=== PATIENT | male | born 1975 | race Caucasian/White ===

== ENCOUNTER 2021-01-09 18:26 | Emergency (ER) | payer OTHER ==
[~2021-01-09] VITALS: Ht 182.9 cm; Wt 178.3 kg
[2021-01-09 18:35] VITALS: BP 172/104
--- NOTE | 2021-01-09 18:47 | NUR ---
45 Y/O M BIB SELF FROM HOME, C/O HIGH BLOOD SUGAR X 3 WEEKS. PT STATES HIS BS HAS RECENTLY BEEN HIGH, FROM 250-400. PT ALSO REPORTS A PRURITIC RASH IN PERINEAL AREA THAT STARTED AROUND THE SAME TIME. IN ED, PT HYPERTENSIVE. BS IN ER: 168. PT STATES THAT HE TOOK HIS DM MEDS 2 HOURS AGO. CLEAR BREATH SOUNDS. WITH SCALY RASH ON INGUINAL AREA. PT CHANGED TO GOWN. ERMD MADE AWARE OF PT STATUS. PMH: DM2, CELLULITIS, SLEEP APNEA ALLERGY: PENICILLIN, [place]S MED: SEE LIST
[2021-01-09] MEDS ORDERED: NACL 0.9% 1,000 ML IV ONE (19:05)
--- NOTE | 2021-01-09 19:17 | NUR ---
REPORT GIVEN TO YOHANA QUINTANA. ALL CARES TRANSFERED AT THIS TIME.
[2021-01-09 19:29] LABS: BASOPHILS # (AUTO) 0.1 K/uL (0.00-0.22); EOSINOPHILS # (AUTO) 0.2 K/uL (0-0.4); EOSINOPHILS % (AUTO) 2.1 % (0.0-4.0); HEMATOCRIT 46.2 % (36-52); HEMOGLOBIN 15.6 g/dL (12.0-18.0); LYMPHOCYTES # (AUTO) 2.8 K/uL (2.0-11.5); LYMPHOCYTES % (AUTO) 30.8 % (20.5-51.1); MEAN CORPUSCULAR HEMOGLOBIN 28 pg (27-31); MEAN CORPUSCULAR HGB CONC 34 g/dL (33-37); MEAN CORPUSCULAR VOLUME 81.5 fL (80-94); MONOCYTES # (AUTO) 0.5 K/uL (0.8-1.0); MONOCYTES % (AUTO) 5.1 % (1.7-9.3); NEUTROPHILS # (AUTO) 5.5 K/uL (1.8-7.7); PLATELET COUNT (AUTO) 313 K/uL (140-450); RED BLOOD CELL COUNT(AUTO) 5.66 MIL/uL (4.20-6.10); RED CELL DISTRIBUTION WIDTH 14.4 % (11.6-13.7)
--- NOTE | 2021-01-09 19:30 | NUR ---
consent signed for ct.
[2021-01-09 19:42] LABS: ALBUMIN 3.3 g/dL (3.4-5.0); ANION GAP 11.6 (8-16); CARBON DIOXIDE 29.4 mmol/L (21-32); CREATININE 0.8 mg/dL (0.6-1.3); TOTAL BILIRUBIN 0.3 mg/dL (0.0-1.0)
--- NOTE | 2021-01-09 19:54 | NUR ---
TO CT VIA [facility]
[2021-01-09] MEDS ORDERED: SULF-59 PO (20:36)
[2021-01-09] MEDS ORDERED: NYST-71 TP (20:36)
== END 2021-01-09 20:55 | disposition home or self-care (01) ==
LOC: MED 18:26
DX: L03.314 Cellulitis of groin (principal); B35.6 Tinea cruris; E11.9 Type 2 diabetes mellitus without complications; I10 Essential (primary) hypertension; Z79.899 Other long term (current) drug therapy; Z88.0 Allergy status to penicillin; Z98.890 Other specified postprocedural states
CPT/HCPCS: 36415; 72193; 80053; 83605; 85025; 87040; 99285; Q9967

== ENCOUNTER 2021-08-02 03:05 | Emergency (ER) | payer OTHER ==
[~2021-08-02] VITALS: Ht 182.9 cm; Wt 163.3 kg
[~2021-08-02 03:05] MED LIST: NYST-71 TP; SULF-59 PO
[2021-08-02 03:40] VITALS: BP 151/90
--- NOTE | 2021-08-02 04:20 | NUR ---
45 YO M BIBS W C/O OF ABSCESS ON HIS LEFT SCROTUM, AND THIGH, WITH BLOODY D/C FOR 4 DAYS. DENIES FEVER, N/V PMH: HTN, DM ALLERGY: PCN MEDS: DENIES
[2021-08-02] MEDS ORDERED: VANCOMYCIN 1,000 MG in DEXTROSE 5% 250 ML IV ONE (05:00)
[2021-08-02] MEDS ORDERED: MORPHINE SULFATE 4 MG/ML SYR IVP ONE (05:00)
[2021-08-02] MEDS ORDERED: cefTRIAXone 1,000 MG in DEXT 5% MINI-BAG PLUS 50 ML IV ONE (05:00)
[2021-08-02] MEDS ORDERED: ONDANSETRON 4 MG/2 ML VIAL IVP ONE (05:00)
[2021-08-02 05:29] LABS: ALBUMIN 2.7 g/dL (3.4-5.0); ANION GAP 11.4 (8-16); CARBON DIOXIDE 27.9 mmol/L (21-32); CREATININE 0.8 mg/dL (0.6-1.3); POTASSIUM 4.3 mmol/L (3.5-5.1); TOTAL BILIRUBIN 0.3 mg/dL (0.0-1.0)
[2021-08-02] MEDS ORDERED: VANCOMYCIN 1,000 MG VIAL ONE (05:51)
[2021-08-02] MEDS ORDERED: cefTRIAXone 1,000 MG VIAL ONE (05:51)
[2021-08-02 06:06] LABS: BASOPHILS # (AUTO) 0.1 K/uL (0.00-0.22); BASOPHILS % (AUTO) 0.5 % (0.0-2.0); EOSINOPHILS # (AUTO) 0.2 K/uL (0-0.4); EOSINOPHILS % (AUTO) 1.3 % (0.0-4.0); HEMATOCRIT 44.7 % (36-52); HEMOGLOBIN 14.5 g/dL (12.0-18.0); LYMPHOCYTES # (AUTO) 1.9 K/uL (2.0-11.5); LYMPHOCYTES % (AUTO) 15.2 % (20.5-51.1); MEAN CORPUSCULAR HEMOGLOBIN 27 pg (27-31); MEAN CORPUSCULAR HGB CONC 33 g/dL (33-37); MONOCYTES # (AUTO) 0.8 K/uL (0.8-1.0); MONOCYTES % (AUTO) 6.2 % (1.7-9.3); NEUTROPHILS # (AUTO) 9.8 K/uL (1.8-7.7); NEUTROPHILS % (AUTO) 76.8 % (42.2-75.2); PLATELET COUNT (AUTO) 260 K/uL (140-450); RED BLOOD CELL COUNT(AUTO) 5.38 MIL/uL (4.20-6.10); RED CELL DISTRIBUTION WIDTH 14.1 % (11.6-13.7); WHITE BLOOD COUNT (AUTO) 12.8 K/uL (4.8-10.8)
--- NOTE | 2021-08-02 07:11 | NUR ---
PATIENT ABLE TO AMUBLATE SELF TO RESTROOM AND TOLERATING MEDICATIONS WELL.
--- NOTE | 2021-08-02 07:18 | NUR ---
HANDOFF GIVEN TO MERVAT MULLER.
--- NOTE | 2021-08-02 07:22 | NUR ---
BEDSIDE REPORT RCVD FROM OUTGOING NOC RN MARCI, ALL CARES ASSUMED.
[2021-08-02] MEDS: NACL 0.9% 1,000 ML IV SCH ×2 (07:34→09:58)
--- NOTE | 2021-08-02 07:39 | NUR ---
PATIENT ASLEEP IN NO ACUTE DISTRESS AND OR DISCOMFORT, MONITORING.
[2021-08-02 08:33] VITALS: BP 156/85
--- NOTE | 2021-08-02 09:14 | NUR ---
PATIENT WILL BE ADMITTED TO [facility]
--- NOTE | 2021-08-02 09:19 | NUR ---
MD AT BEDSIDE DISCUSSING PLAN OF CARE WITH PATIENT
--- NOTE | 2021-08-02 09:30 | NUR ---
LEFT SIDE OF SCROTUM CLEANSED WITH NS, CLEAN DRY DRESSING PLACED TO ASSIST WITH DRAINAGE ABSORPTION. AREA NOTED WITH PURULENT DISCHARGE AND FOUL ODOR.
--- NOTE | 2021-08-02 09:38 | NUR ---
CINDY JENNINGS COLLECTED AND BROUGHT TO LAB
--- NOTE | 2021-08-02 10:06 | NUR ---
PATIENT ASKED TO GO OUTSIDE AND SMOKE, EDUCATED PATIENT HE CAN NOT LEAVE FACILITY AND OFFERED PATIENT A NICOTINE PATCH. PATIENT AGREED FOR PATCH.
--- NOTE | 2021-08-02 10:08 | NUR ---
GAVE ORDER FOR NICOTINE PATCH
--- NOTE | 2021-08-02 10:10 | NUR ---
PIV TO LEFT ARM D/C PATIENT REFUSES CARE AND STATES, "I AM LEAVING", CHARGE AWARE.
--- NOTE | 2021-08-02 10:12 | NUR ---
Patient does not wish to proceed with medical care recommended by . Patient given information related to possible complications, up to and including , which could occur as a result of leaving hospital at this time. Patient verbalizes understanding of risks involved leaving against medical advice. Patient has signed AMA form.
== END 2021-08-02 10:12 | disposition left against medical advice (07) ==
LOC: MED 03:05
DX: N49.2 Inflammatory disorders of scrotum (principal); Z20.822 Contact with and (suspected) exposure to COVID-19; E11.9 Type 2 diabetes mellitus without complications; I10 Essential (primary) hypertension; Z79.899 Other long term (current) drug therapy; Z88.0 Allergy status to penicillin
CPT/HCPCS: 36415; 74177; 80053; 83605; 83690; 85025; 85651; 86140; 87040; 87426; 96365; 96366; 96367; 96375; 99285; J0696; J2270; J2405; J3370; J7030; Q9967

== ENCOUNTER 2021-08-03 02:45 | Inpatient (IN) | payer OTHER ==
[~2021-08-03] VITALS: Ht 182.9 cm; Wt 163.3 kg
[2021-08-03 02:54] VITALS: BP 159/94
[2021-08-03] MEDS ORDERED: VANCOMYCIN 1,000 MG in DEXTROSE 5% 250 ML IV SCH (03:20)
[2021-08-03] MEDS ORDERED: CLINDAMYCIN 600 MG in DEXTROSE 5% 50 ML IV SCH (03:20)
[2021-08-03 03:32] LABS: BASOPHILS # (AUTO) 0.2 K/uL (0.00-0.22); EOSINOPHILS # (AUTO) 0.5 K/uL (0-0.4); EOSINOPHILS % (AUTO) 4.4 % (0.0-4.0); HEMATOCRIT 46.2 % (36-52); HEMOGLOBIN 15.4 g/dL (12.0-18.0); LYMPHOCYTES # (AUTO) 1.9 K/uL (2.0-11.5); LYMPHOCYTES % (AUTO) 17.7 % (20.5-51.1); MEAN CORPUSCULAR HEMOGLOBIN 28 pg (27-31); MEAN CORPUSCULAR HGB CONC 33 g/dL (33-37); MEAN CORPUSCULAR VOLUME 82.7 fL (80-94); MONOCYTES # (AUTO) 0.7 K/uL (0.8-1.0); MONOCYTES % (AUTO) 6.4 % (1.7-9.3); NEUTROPHILS # (AUTO) 7.5 K/uL (1.8-7.7); NEUTROPHILS % (AUTO) 69.5 % (42.2-75.2); PLATELET COUNT (AUTO) 323 K/uL (140-450); RED BLOOD CELL COUNT(AUTO) 5.59 MIL/uL (4.20-6.10); RED CELL DISTRIBUTION WIDTH 14.1 % (11.6-13.7); WHITE BLOOD COUNT (AUTO) 10.8 K/uL (4.8-10.8)
[2021-08-03 03:45] LABS: ANION GAP 12.5 (8-16); CARBON DIOXIDE 28.5 mmol/L (21-32); CREATININE 0.8 mg/dL (0.6-1.3)
[2021-08-03] MEDS ORDERED: MAG SULF 2000 MG/WATER PREMIX 50 ML IV PRN (03:45)
[2021-08-03] MEDS ORDERED: VANCOMYCIN PER PHARMACY MC PRN (03:45)
[2021-08-03] MEDS ORDERED: ACETAMINOPHEN 325 MG TAB PO PRN (03:45)
[2021-08-03] MEDS ORDERED: KCL 20 MEQ/WATER INJ PREMIX 200 ML IV PRN (03:45)
[2021-08-03] MEDS ORDERED: ONDANSETRON 4 MG/2 ML VIAL IVP PRN (03:45)
[2021-08-03] MEDS ORDERED: HYDROcodone/APAP 5/325 MG 1 TAB TAB PO PRN (03:45)
[2021-08-03] MEDS ORDERED: MORPHINE SULFATE 4 MG/ML SYR IVP PRN (03:45)
[2021-08-03] MEDS ORDERED: POTASSIUM CHLORIDE 10 MEQ TABER PO PRN (03:45)
[2021-08-03] MEDS ORDERED: ZOLPIDEM 5 MG TAB PO PRN (03:45)
[2021-08-03] MEDS ORDERED: MAGNESIUM OXIDE 400 MG TAB PO PRN (03:45)
[2021-08-03] MEDS ORDERED: LORazepam 1 MG TAB PO PRN (03:45)
[2021-08-03] MEDS ORDERED: CLINDAMYCIN 600 MG/4 ML VIAL ONE (03:57)
[2021-08-03] MEDS ORDERED: cefTRIAXone 1,000 MG VIAL ONE (04:27)
[2021-08-03] MEDS: NACL 0.9% 1,000 ML IV SCH ×2 (04:43→16:15)
[2021-08-03 05:05] VITALS: BP 136/81
[2021-08-03] MEDS ORDERED: VANCOMYCIN 1GM/DEXT 5% PREMIX 200 ML IV SCH (06:00)
[2021-08-03 08:00] VITALS: BP 127/83
[2021-08-03] MEDS: NICOTINE TRANSD SYS 21 MG/24 HR PATCH TD SCH (09:00)
[2021-08-03] MEDS: VANCOMYCIN 1,500 MG in DEXTROSE 5% 500 ML IV SCH ×2 (09:00→16:20)
[2021-08-03] MEDS: DOCUSATE SODIUM 100 MG GELCAP PO SCH (09:00)
[2021-08-03 16:00] VITALS: BP 134/74
[2021-08-03] MEDS ORDERED: DEXTROSE 50% 50 ML SYR IVP PRN (17:45)
[2021-08-03 20:00] VITALS: BP 134/67
[2021-08-03] MEDS: INSULIN LISPRO SLIDING SCALE 100 UNITS/ML VIAL SUBQ PRN (20:57)
[2021-08-03] MEDS: BLOOD GLUCOSE MONITORING 1 DEV DEV FS SCH (20:57)
[2021-08-03] MEDS: metroNIDAZOLE 500 MG TAB PO SCH (21:08)
[2021-08-04] MEDS: VANCOMYCIN 1,500 MG in DEXTROSE 5% 500 ML IV SCH ×3 (00:47→16:00)
[2021-08-04 04:00] VITALS: BP 139/76
[2021-08-04] MEDS: NACL 0.9% 1,000 ML IV SCH ×2 (05:45→17:32)
[2021-08-04] MEDS: metroNIDAZOLE 500 MG TAB PO SCH ×3 (05:50→21:11)
[2021-08-04] MEDS: BLOOD GLUCOSE MONITORING 1 DEV DEV FS SCH ×4 (06:41→20:53)
[2021-08-04] MEDS: INSULIN LISPRO SLIDING SCALE 100 UNITS/ML VIAL SUBQ PRN ×4 (06:46→21:14)
[2021-08-04 07:32] LABS: CARBON DIOXIDE 29.2 mmol/L (21-32); CREATININE 0.7 mg/dL (0.6-1.3); POTASSIUM 4.2 mmol/L (3.5-5.1)
[2021-08-04 07:36] LABS: BASOPHILS # (AUTO) 0.1 K/uL (0.00-0.22); BASOPHILS % (AUTO) 0.7 % (0.0-2.0); EOSINOPHILS # (AUTO) 0.3 K/uL (0-0.4); EOSINOPHILS % (AUTO) 3.6 % (0.0-4.0); HEMATOCRIT 46.1 % (36-52); HEMOGLOBIN 15.5 g/dL (12.0-18.0); LYMPHOCYTES # (AUTO) 2.8 K/uL (2.0-11.5); LYMPHOCYTES % (AUTO) 30.9 % (20.5-51.1); MEAN CORPUSCULAR HEMOGLOBIN 28 pg (27-31); MEAN CORPUSCULAR HGB CONC 34 g/dL (33-37); MEAN CORPUSCULAR VOLUME 81.9 fL (80-94); MONOCYTES # (AUTO) 0.5 K/uL (0.8-1.0); MONOCYTES % (AUTO) 5.6 % (1.7-9.3); NEUTROPHILS # (AUTO) 5.3 K/uL (1.8-7.7); NEUTROPHILS % (AUTO) 59.2 % (42.2-75.2); PLATELET COUNT (AUTO) 357 K/uL (140-450); RED BLOOD CELL COUNT(AUTO) 5.62 MIL/uL (4.20-6.10); RED CELL DISTRIBUTION WIDTH 14.4 % (11.6-13.7); WHITE BLOOD COUNT (AUTO) 8.9 K/uL (4.8-10.8)
[2021-08-04] MEDS: NICOTINE TRANSD SYS 21 MG/24 HR PATCH TD SCH (09:16)
[2021-08-04] MEDS: DOCUSATE SODIUM 100 MG GELCAP PO SCH (09:16)
[2021-08-04 12:00] VITALS: BP 116/55
[2021-08-04] MEDS: INSULIN LANTUS 100 UNITS/ML 10 ML VIAL SUBQ SCH (14:45)
[2021-08-04 16:00] VITALS: BP 153/76
[2021-08-04 20:00] VITALS: BP 148/78
[2021-08-04] MEDS ORDERED: ZOLPIDEM 5 MG TAB PO PRN (20:05)
[2021-08-05] MEDS ORDERED: VANCOMYCIN 500 MG VIAL ONE (00:40)
[2021-08-05] MEDS: VANCOMYCIN 1,500 MG in DEXTROSE 5% 500 ML IV SCH (00:49)
[2021-08-05 04:00] VITALS: BP 138/85
[2021-08-05] MEDS: metroNIDAZOLE 500 MG TAB PO SCH ×3 (05:00→20:52)
[2021-08-05] MEDS: NACL 0.9% 1,000 ML IV SCH ×2 (05:45→18:22)
[2021-08-05] MEDS: BLOOD GLUCOSE MONITORING 1 DEV DEV FS SCH ×5 (06:30→21:45)
[2021-08-05] MEDS: INSULIN LISPRO SLIDING SCALE 100 UNITS/ML VIAL SUBQ PRN ×4 (06:31→21:17)
[2021-08-05 08:00] VITALS: BP 159/100
[2021-08-05] MEDS: VANCOMYCIN 1,500 MG in NACL 0.9% 500 ML IV SCH ×2 (08:00→15:33)
[2021-08-05] MEDS: DOCUSATE SODIUM 100 MG GELCAP PO SCH ×2 (09:00→09:05)
[2021-08-05 09:01] LABS: ANION GAP 10.8 (8-16); CARBON DIOXIDE 28.9 mmol/L (21-32); CREATININE 0.6 mg/dL (0.6-1.3); POTASSIUM 3.7 mmol/L (3.5-5.1)
[2021-08-05 09:04] LABS: BASOPHILS # (AUTO) 0.1 K/uL (0.00-0.22); BASOPHILS % (AUTO) 0.8 % (0.0-2.0); EOSINOPHILS # (AUTO) 0.3 K/uL (0-0.4); EOSINOPHILS % (AUTO) 2.9 % (0.0-4.0); HEMOGLOBIN 15.5 g/dL (12.0-18.0); LYMPHOCYTES # (AUTO) 2.7 K/uL (2.0-11.5); LYMPHOCYTES % (AUTO) 29.5 % (20.5-51.1); MEAN CORPUSCULAR HEMOGLOBIN 27 pg (27-31); MEAN CORPUSCULAR HGB CONC 33 g/dL (33-37); MEAN CORPUSCULAR VOLUME 82.3 fL (80-94); MONOCYTES # (AUTO) 0.5 K/uL (0.8-1.0); MONOCYTES % (AUTO) 5.9 % (1.7-9.3); NEUTROPHILS # (AUTO) 5.6 K/uL (1.8-7.7); NEUTROPHILS % (AUTO) 60.9 % (42.2-75.2); PLATELET COUNT (AUTO) 361 K/uL (140-450); RED BLOOD CELL COUNT(AUTO) 5.72 MIL/uL (4.20-6.10); RED CELL DISTRIBUTION WIDTH 14.2 % (11.6-13.7); WHITE BLOOD COUNT (AUTO) 9.2 K/uL (4.8-10.8)
[2021-08-05] MEDS: NICOTINE TRANSD SYS 21 MG/24 HR PATCH TD SCH (09:05)
[2021-08-05] MEDS: INSULIN LANTUS 100 UNITS/ML 10 ML VIAL SUBQ SCH (09:05)
[2021-08-05] MEDS ORDERED: fentaNYL citrate 0.05 MG/ML VIAL ONE ×2 (13:31→13:52)
[2021-08-05] MEDS ORDERED: ONDANSETRON 4 MG/2 ML VIAL ONE (13:41)
[2021-08-05] MEDS ORDERED: KETOROLAC 30 MG/ML VIAL ONE (13:42)
[2021-08-05] MEDS ORDERED: PROPOFOL 200 MG/20 ML VIAL IV ONE (13:42)
[2021-08-05] MEDS ORDERED: LIDOCAINE/EPI MPF 1%1:200000 30 ML VIAL INJ ONE (13:54)
[2021-08-05] MEDS ORDERED: BUPIVACAINE-MPF 0.25% 30 ML VIAL INJ ONE (13:54)
[2021-08-05 16:00] VITALS: BP 158/88
[2021-08-06] VITALS: BP 156/88
[2021-08-06] MEDS: VANCOMYCIN 1,500 MG in NACL 0.9% 500 ML IV SCH ×3 (02:02→16:58)
[2021-08-06] MEDS: NACL 0.9% 1,000 ML IV SCH ×2 (02:06→20:05)
[2021-08-06] MEDS: metroNIDAZOLE 500 MG TAB PO SCH ×3 (05:12→21:00)
[2021-08-06 05:54] LABS: BASOPHILS # (AUTO) 0.1 K/uL (0.00-0.22); BASOPHILS % (AUTO) 0.6 % (0.0-2.0); EOSINOPHILS # (AUTO) 0.2 K/uL (0-0.4); EOSINOPHILS % (AUTO) 2.4 % (0.0-4.0); HEMATOCRIT 46.1 % (36-52); HEMOGLOBIN 15.3 g/dL (12.0-18.0); LYMPHOCYTES # (AUTO) 2.5 K/uL (2.0-11.5); LYMPHOCYTES % (AUTO) 24.7 % (20.5-51.1); MEAN CORPUSCULAR HEMOGLOBIN 27 pg (27-31); MEAN CORPUSCULAR HGB CONC 33 g/dL (33-37); MEAN CORPUSCULAR VOLUME 81.6 fL (80-94); MONOCYTES # (AUTO) 0.6 K/uL (0.8-1.0); NEUTROPHILS # (AUTO) 6.6 K/uL (1.8-7.7); NEUTROPHILS % (AUTO) 66.3 % (42.2-75.2); PLATELET COUNT (AUTO) 340 K/uL (140-450); RED BLOOD CELL COUNT(AUTO) 5.65 MIL/uL (4.20-6.10); RED CELL DISTRIBUTION WIDTH 14.2 % (11.6-13.7)
[2021-08-06 06:07] LABS: ANION GAP 12.1 (8-16); CARBON DIOXIDE 27.7 mmol/L (21-32); CREATININE 0.8 mg/dL (0.6-1.3); POTASSIUM 3.8 mmol/L (3.5-5.1)
[2021-08-06] MEDS: INSULIN LISPRO SLIDING SCALE 100 UNITS/ML VIAL SUBQ PRN ×2 (06:46→11:59)
[2021-08-06] MEDS: BLOOD GLUCOSE MONITORING 1 DEV DEV FS SCH ×4 (07:00→21:00)
[2021-08-06 08:00] VITALS: BP 135/95
[2021-08-06] MEDS: DOCUSATE SODIUM 100 MG GELCAP PO SCH (08:34)
[2021-08-06] MEDS: NICOTINE TRANSD SYS 21 MG/24 HR PATCH TD SCH (08:34)
[2021-08-06] MEDS: INSULIN LANTUS 100 UNITS/ML 10 ML VIAL SUBQ SCH (08:37)
[2021-08-06 16:30] VITALS: BP 145/92
[2021-08-07] MEDS ORDERED: VANCOMYCIN 500 MG VIAL ONE (00:38)
[2021-08-07] MEDS: metroNIDAZOLE 500 MG TAB PO SCH (05:45)
[2021-08-07] MEDS: BLOOD GLUCOSE MONITORING 1 DEV DEV FS SCH ×2 (07:07→11:39)
[2021-08-07 07:32] LABS: BASOPHILS # (AUTO) 0.1 K/uL (0.00-0.22); BASOPHILS % (AUTO) 0.8 % (0.0-2.0); EOSINOPHILS # (AUTO) 0.3 K/uL (0-0.4); EOSINOPHILS % (AUTO) 2.6 % (0.0-4.0); HEMATOCRIT 44.3 % (36-52); HEMOGLOBIN 14.8 g/dL (12.0-18.0); LYMPHOCYTES # (AUTO) 2.8 K/uL (2.0-11.5); LYMPHOCYTES % (AUTO) 27.2 % (20.5-51.1); MEAN CORPUSCULAR HEMOGLOBIN 27 pg (27-31); MEAN CORPUSCULAR HGB CONC 33 g/dL (33-37); MEAN CORPUSCULAR VOLUME 81.5 fL (80-94); MONOCYTES # (AUTO) 0.6 K/uL (0.8-1.0); MONOCYTES % (AUTO) 5.3 % (1.7-9.3); NEUTROPHILS # (AUTO) 6.7 K/uL (1.8-7.7); NEUTROPHILS % (AUTO) 64.1 % (42.2-75.2); PLATELET COUNT (AUTO) 344 K/uL (140-450); RED BLOOD CELL COUNT(AUTO) 5.44 MIL/uL (4.20-6.10); RED CELL DISTRIBUTION WIDTH 14.2 % (11.6-13.7); WHITE BLOOD COUNT (AUTO) 10.4 K/uL (4.8-10.8)
[2021-08-07 07:41] LABS: ANION GAP 10.4 (8-16); CARBON DIOXIDE 28.4 mmol/L (21-32); CREATININE 0.8 mg/dL (0.6-1.3); POTASSIUM 3.8 mmol/L (3.5-5.1)
[2021-08-07] MEDS: NACL 0.9% 1,000 ML IV SCH (08:19)
[2021-08-07] MEDS: DOCUSATE SODIUM 100 MG GELCAP PO SCH (08:27)
[2021-08-07] MEDS: NICOTINE TRANSD SYS 21 MG/24 HR PATCH TD SCH (08:28)
[2021-08-07] MEDS: INSULIN LANTUS 100 UNITS/ML 10 ML VIAL SUBQ SCH (08:31)
[2021-08-07] MEDS: VANCOMYCIN 1,500 MG in NACL 0.9% 500 ML IV SCH ×3 (08:36)
[2021-08-07] MEDS ORDERED: ENOXAPARIN 40 MG/0.4 ML SYR SUBQ SCH (09:00)
[2021-08-07] MEDS ORDERED: METR-435 PO (09:57)
[2021-08-07] MEDS ORDERED: ACET-1182 PO (09:57)
[2021-08-07] MEDS ORDERED: CEPH-588 PO (09:57)
[2021-08-07] MEDS ORDERED: SITA100T8 PO (10:03)
[2021-08-07] MEDS ORDERED: METF-1253 PO (10:03)
[2021-08-07] MEDS: INSULIN LISPRO SLIDING SCALE 100 UNITS/ML VIAL SUBQ PRN (11:45)
== END 2021-08-07 12:15 | disposition home health service (06) | DRG 364 ==
LOC: MED 02:45 → MMU 03:49 → MTU 04:45 → MMU 08-06 22:30
PROVIDERS: ADMIT Hospitalist; ATTEND Hospitalist
PROC: 0Y960ZZ Drainage of Left Inguinal Region, Open Approach (ICD-10-PCS; 2021-08-05)
PROC: 0W9M0ZZ Drainage of Male Perineum, Open Approach (ICD-10-PCS; 2021-08-05)
PROC: 0JBB0ZZ Excision of Perineum Subcutaneous Tissue and Fascia, Open Approach (ICD-10-PCS; principal; 2021-08-05 13:00)
DX: L02.215 Cutaneous abscess of perineum (principal); E11.52 Type 2 diabetes mellitus with diabetic peripheral angiopathy with gangrene; L02.214 Cutaneous abscess of groin; L03.315 Cellulitis of perineum; I10 Essential (primary) hypertension; L03.311 Cellulitis of abdominal wall; L03.314 Cellulitis of groin; M72.9 Fibroblastic disorder, unspecified; Z20.822 Contact with and (suspected) exposure to COVID-19; Z53.29 Procedure and treatment not carried out because of patient's decision for other reasons; E66.01 Morbid (severe) obesity due to excess calories; Z79.4 Long term (current) use of insulin; Z87.891 Personal history of nicotine dependence; Z88.0 Allergy status to penicillin; Z68.42 Body mass index [BMI] 45.0-49.9, adult; Z91.018 Allergy to other foods; N49.2 Inflammatory disorders of scrotum
CPT/HCPCS: 36415; 80048; 80202; 82948; 83036; 83735; 85025; 87070; 87075; 87081; 87186; 87205; 96365; 99291; J0696; J1650; J1815; J1885; J2001; J2270; J2405; J2704; J3010; J3370; J3490; J7030; J7060

== ENCOUNTER 2022-04-17 17:32 | Emergency (ER) | payer OTHER ==
[~2022-04-17] VITALS: Ht 182.9 cm; Wt 173.3 kg
[~2022-04-17 17:32] MED LIST changes: +ACET-1182 PO; +CEPH-588 PO; +METF-1253 PO; +METR-435 PO; -NYST-71 TP; +SITA100T8 PO; -SULF-59 PO
[2022-04-17 17:57] VITALS: BP 147/87
--- NOTE | 2022-04-17 18:33 | NUR ---
ASSUMED NURSING CARE, NURSING ASSESSMENT COMPLETED.
--- NOTE | 2022-04-17 19:22 | NUR ---
Assumed care of patient at change of shift. Introduced self to patient, denies any pain to scrotal area but states for past x6 months scrotal sac red and swollen. denies any dysuria. Bed to low position sr up. continue to monitor.
--- NOTE | 2022-04-17 19:35 | NUR ---
Blood for labwork drawn from right AC per lab. Patient tolerated.
[2022-04-17 19:45] LABS: BASOPHILS # (AUTO) 0.1 K/uL (0.00-0.22); EOSINOPHILS # (AUTO) 0.2 K/uL (0-0.4); HEMATOCRIT 45.3 % (36-52); HEMOGLOBIN 14.9 g/dL (12.0-18.0); LYMPHOCYTES # (AUTO) 3.8 K/uL (2.0-11.5); LYMPHOCYTES % (AUTO) 35.8 % (20.5-51.1); MEAN CORPUSCULAR HEMOGLOBIN 27 pg (27-31); MEAN CORPUSCULAR HGB CONC 33 g/dL (33-37); MONOCYTES # (AUTO) 0.6 K/uL (0.8-1.0); MONOCYTES % (AUTO) 5.8 % (1.7-9.3); NEUTROPHILS # (AUTO) 5.8 K/uL (1.8-7.7); NEUTROPHILS % (AUTO) 55.4 % (42.2-75.2); PLATELET COUNT (AUTO) 297 K/uL (140-450); RED BLOOD CELL COUNT(AUTO) 5.53 MIL/uL (4.20-6.10); RED CELL DISTRIBUTION WIDTH 14.6 % (11.6-13.7); WHITE BLOOD COUNT (AUTO) 10.5 K/uL (4.8-10.8)
--- NOTE | 2022-04-17 20:04 | NUR ---
U/S tech and machine at bedside.
[2022-04-17 20:05] LABS: ALBUMIN 3.7 g/dL (3.4-5.0); ANION GAP 11.9 (8-16); CARBON DIOXIDE 27.4 mmol/L (21-32); CREATININE 0.8 mg/dL (0.6-1.3); POTASSIUM 4.3 mmol/L (3.5-5.1); TOTAL BILIRUBIN 0.1 mg/dL (0.0-1.0)
--- NOTE | 2022-04-17 21:15 | NUR ---
patient to ct scan via gurney [facility] w/ educational programming director.
--- NOTE | 2022-04-17 21:30 | NUR ---
returned from ct scan. PT DENIES N/V/D; SKIN IS INTACT, PINK/WARM/DRY; AAOX4, PERRL, WITH EVEN AND STEADY GAIT; LUNGS CLEAR BL, BREATHING UNLABORED; HR EVEN AND REGULAR, BL PERIPHERAL PULSES PRESENT; BS ACTIVE X4, NO TENDERNESS TO PALPATION, NO HEPATOSPLENOMEGALLY PALPATED, RESONANT TO PERCUSSION; PT DENIES ANY FEVER, CP, SOB, OR COUGH AT THIS TIME; PT STATES 0/10 PAIN AT THIS TIME; VSS; PATIENT POSITIONED FOR COMFORT; HOB ELEVATED; BEDRAILS UP X2; BED DOWN.
--- NOTE | 2022-04-17 22:42 | NUR ---
patient to ct scan via wheelchair accompanied w/ technical support professional
--- NOTE | 2022-04-17 22:50 | NUR ---
patient returned from ct scan
[2022-04-17 23:28] VITALS: BP 139/95
--- NOTE | 2022-04-17 23:28 | NUR ---
no change from previous assessment. patient resting comfortably at this time in no acute distress. awaiting ct scan results. bed to low position sr up, continue to monitor. IV removed, catheter intact and site benign. Applied folded 4x4 gauze and tape to stop bleeding.
--- NOTE | 2022-04-17 23:40 | NUR ---
patient stated that he wanted to go to "his people/transportation home" to give them an update. Patient walked out of the emergency room. Patient stated that he will be right back.
--- NOTE | 2022-04-18 00:09 | NUR ---
PATIENT ELOPED FROM FACILITY. DISCHARGE INSTRUCTIONS NOT GIVEN TO PATIENT. DR. Bunn NOTIFIED.
--- NOTE | 2022-04-18 00:10 | NUR ---
patient has not yet returned to his bed. I went to waiting area and outside hospital to look for patient but there is no sign of patient any where. MD and charge nurse notified. Patient cell phone was called, left message. Patient has eloped from ER.
== END 2022-04-18 00:10 | disposition left against medical advice (07) ==
LOC: MED 17:32
DX: N50.9 Disorder of male genital organs, unspecified (principal); N50.811 Right testicular pain; E11.9 Type 2 diabetes mellitus without complications; F17.210 Nicotine dependence, cigarettes, uncomplicated; Z71.6 Tobacco abuse counseling; Z88.0 Allergy status to penicillin; Z79.899 Other long term (current) drug therapy; Z79.84 Long term (current) use of oral hypoglycemic drugs; Z98.890 Other specified postprocedural states
CPT/HCPCS: 36415; 72192; 72193; 76870; 80053; 83605; 85025; 99285; Q0092; Q9967